=== PATIENT | male | born 1945 | race Caucasian/White ===

== ENCOUNTER 2020-01-25 12:22 | Outpatient (REF) | payer MEDICARE, SELFPAY | END 2020-01-25 12:23 | disposition home or self-care (01) | LOC: HO.LAB 12:22 | PROVIDERS: PCP Internal Medicine; Visit Provider Internal Medicine | DX: Z20.828 Contact with and (suspected) exposure to other viral communicable diseases (principal) | CPT/HCPCS: C9803; U0003 ==

== ENCOUNTER 2020-06-04 12:34 | Outpatient (REF) | payer MEDICARE, SELFPAY ==
--- NOTE | ~2020-06-04 | MR_ITS ---
EXAMINATION: BRAIN MRI WITHOUT CONTRAST CLINICAL INFORMATION: Dementia. Tremor. COMPARISON: No relevant prior imaging. TECHNIQUE: Multiplanar MR imaging of the brain was performed without contrast. FINDINGS: There are scattered nonspecific foci of T2 FLAIR signal hyperintensity within the periventricular white matter. No acute territorial infarct. There is a punctate focus of magnetic susceptibility artifact within the right frontal lobe on axial image 19 of 26 series 7 most likely representing mineralization or perhaps a chronic microhemorrhage. No intracranial mass effect or midline shift. No abnormal extra-axial collection. Lateral and third ventricles are proportionate to the subarachnoid spaces. No hydrocephalus. Midline structures including the cervicomedullary junction are normal. No acute bone marrow signal changes. There is a trace left mastoid tip effusion. Maxillary sinuses are atelectatic. [id number] paranasal sinus disease within ethmoid air cells. Globes and orbits are symmetric. MR/MR head/brain wo con IMPRESSION: There are scattered chronic small vessel ischemic changes within the periventricular white matter. Otherwise unremarkable examination. No evidence of acute territorial infarct or hemorrhage.
== END 2020-06-04 12:35 | disposition home or self-care (01) ==
LOC: HO.MRI 12:34
PROVIDERS: PCP Internal Medicine; Visit Provider Psychiatry & Neurology Neurology
DX: F06.8 Other specified mental disorders due to known physiological condition (principal); R25.1 Tremor, unspecified
CPT/HCPCS: 70551